=== PATIENT | female | born 1965 | race Caucasian/White ===

== ENCOUNTER 2018-03-22 22:05 | Emergency (ER) | payer SELFPAY ==
[~2018-03-22] VITALS: Ht 157.5 cm; Wt 81.3 kg
[~2018-03-22 22:05] MED LIST: ALBU0.086 INH; ALBU8I INH; LORA-392 PO; LORTA10 PO; MEDR4PAK3 PO; ZITH250T PO
[2018-03-22 22:10] VITALS: BP 160/92; PULSE 101; RESP 18; TEMP 98.4; O2SAT 96
[2018-03-22] MEDS ORDERED: CYCL10TA PO (22:48)
[2018-03-22] MEDS ORDERED: CLON1 PO (22:48)
--- NOTE | 2018-03-22 22:57 | RADRPT ---
EXAM DATE: 03/22/2018 10:54 PM EDT AGE/SEX: 52 years / Female INDICATIONS: Patient complains of right ankle pain status post falling up stairs. CLINICAL DATA: This is the patient's initial encounter. Patient reports that signs and symptoms have been present for 1 day and indicates a pain score of 10/10. MEDICAL/SURGICAL HISTORY: None. None. COMPARISON: No prior [facility] exams available for comparison. FINDINGS: Bony structures are intact and in normal alignment. Joints are intact without dislocation or signifi cant arthropathy. Osseous density is normal. Soft tissues are unremarkable. No radiopaque foreign bodies seen. Plantar and posterior calcaneal spur formation. CONCLUSION: No evidence of recent bony injury. Electronically signed by: Jef Wilson MD 03/22/2018 10:56 PM EDT
--- NOTE | 2018-03-22 23:03 | RADRPT ---
EXAM DATE: 03/22/2018 10:58 PM EDT AGE/SEX: 52 years / Female INDICATIONS: Patient complains of right foot pain status post fall up stairs. CLINICAL DATA: This is the patient's initial encounter. Patient reports that signs and symptoms have been present for 1 day and indicates a pain score of 10/10. MEDICAL/SURGICAL HISTORY: None. None. COMPARISON: [facility], ANKLE RIGHT COMPLETE ([id number]), 03/22/2018. . FINDINGS: The oblique views suggest a nondisplaced fracture involving the body of the calcaneus. The rest of th e bony structures are grossly intact. No joint dislocation is demonstrated. There is a small heel spu r on the plantar surface of calcaneus. There is soft tissue swelling. CONCLUSION: Findings suggestive of a nondisplaced fracture involving the body of the calcaneus. Recommend noncont rast CT scan of the calcaneus for further evaluation Electronically signed by: Germain Zhou MD 03/22/2018 11:02 PM EDT
[2018-03-22] MEDS ORDERED: ACETAMINOPHEN/HYDROcodone 325 MG/5 MG TAB PO ONE (23:15)
--- NOTE | 2018-03-22 23:19 | PD ---
HPI Chief Complaint: Injury Time Seen by Provider: 22:29 Travel History International Travel<30 days: No Contact w/Intl Traveler<30days: No Traveled to known affect area: No History of Present Illness HPI Patient is a 52 year old female who comes in complaining of pain to her right foot after she fell "through her stairs." She says she was walking up the steps when they gave way and she twisted her ankle. She says she hit her right hip and knee, but these are not bothering her. She denies hitting her head or any LOC. She took an Advil and Tylenol without relief of her symptoms. Walking makes the pain worse. This occurred just prior to arrival. Severity is mild to moderate. PFSH Past Medical History Anxiety: Yes COPD: Yes (PT STATES SHE HAS EMPHYSEMA) Diminished Hearing: No Hypertension: Yes Musculoskeletal: Yes (CHRONIC LEFT KNEE) Immunizations Current: Yes Tetanus Vaccination: > 5 Years Influenza Vaccination: No ?: Not LMP: 03/01/18 : 4 Para: 2 : 2 Past Surgical History Section: Yes (1995, 2001) Tonsillectomy: Yes Social History Alcohol Use: Yes (OC) Tobacco Use: Yes (1.5 PPD,STATES QUIT 8 DAYS AGO DUE TO ANXIETY) Substance Use: No Allergies-Medications (Allergen,Severity, Reaction): Coded Allergies: No Known Allergies (Verified , 08/08/14) Reported Meds & Prescriptions Reported Meds & Active Scripts Active Reported Flexeril (Cyclobenzaprine HCl) 10 Mg Tab 10 Mg PO TID Klonopin (Clonazepam) 1 Mg Tab 1 Mg PO DAILY Review of Systems General / Constitutional: No: Fever, Chills HENT: No: Headaches, Lightheadedness Cardiovascular: No: Chest Pain or Discomfort Respiratory: No: Shortness of Breath Gastrointestinal: No: Nausea, Vomiting Musculoskeletal: Positive: Edema, Pain Skin: No Rash, No Change in Pigmentation Neurologic: No: Weakness, Dizziness, Sensory Disturbance Physical Exam Narrative GENERAL: Awake and alert, in no acute distress. SKIN: Focused skin assessment warm/dry. No wounds. HEAD: Atraumatic. Normocephalic. EYES: Pupils equal and round. No scleral icterus. ENT: Mucous membranes pink and moist. CARDIOVASCULAR: Regular rate and rhythm. No murmur appreciated. RESPIRATORY: No accessory muscle use. Clear to auscultation. Breath sounds equal bilaterally. MUSCULOSKELETAL: No obvious deformities. No clubbing. No cyanosis. No edema. No tenderness to palpation of the hip. Pain with palpation to the base of the right foot. Pedal pulse and sensation intact. NEUROLOGICAL: Awake and alert. No obvious cranial nerve deficits. Motor grossly within normal limits. Normal speech. PSYCHIATRIC: Appropriate mood and affect; insight and judgment normal. Data Data Last Documented VS Vital Signs Date Time Temp Pulse Resp B/P (MAP) Pulse Ox O2 Delivery O2 Flow Rate FiO2 03/22/18 22:32 18 97 Room Air 03/22/18 22:10 98.4 101 160/92 (114) Orders Orders Foot, Complete ([id number]) (03/22/18 ) Ankle, Complete ([id number]) (03/22/18 ) Ct Foot W/O Contrast (03/22/18 ) Acetamin-Hydrocod 325-5 Mg ([place] 5-325 (03/22/18 23:15) MDM Medical Decision Making Medical Screen Exam Complete: Yes Emergency Medical Condition: Yes Medical Record Reviewed: Yes Differential Diagnosis foot fracture vs ankle fracture vs sprain Narrative Course Patient is a 52-year-old female comes in complaining of pain to her right foot after falling through her stairs. Exam shows tenderness to palpation of the foot. X-ray obtained shows possible calcaneal fracture. CT of the foot obtained shows a comminuted, nondisplaced fracture. Last 24 hours Impressions [address] Extrem[address] 03/22/18 Signed Impressions: CONCLUSION: 1. Comminuted nondisplaced fractures through the body of the calcaneus. Foot X-Ray 03/22/18 Signed Impressions: CONCLUSION: Findings suggestive of a nondisplaced fracture involving the body of the calcan eus. Recommend noncontrast CT scan of the calcaneus for further evaluation Ankle X-Ray 03/22/18 Signed Impressions: CONCLUSION: No evidence of recent bony injury. Patient given pain medicine. Call placed to podiatry for consult. Patient informed of the results, states she just wants to go home. She does not want to wait for podiatry at this time. Advised that she may need surgery to have this fixed. Foot splinted and she was given crutches. Given a prescription for pain medicine. Referral placed to podiatry. She is encouraged to follow-up as soon as possible as this may need to be fixed surgically. I did advise her to stay until I was able to speak with the [facility] programmer, however she refuses at this time. Diagnosis Primary Impression: Right calcaneal fracture Qualified Codes: S92.014A - Nondisplaced fracture of body of right calcaneus, initial encounter for closed fracture Patient Instructions: Calcaneal Fracture (ED), General Instructions Additional Instructions: Follow-up with podiatry as soon as possible. Take pain medicine as needed. Do not get your splint wet and use the crutches to avoid putting weight on your foot. Return to the ED as needed for any worsening symptoms. Scripts Hydrocodone-Acetaminophen ([place]) 5 Mg-325 Mg Tab 1 TAB PO Q6H Y for PAIN, #10 TAB 0 Refills Prov: Judith Turk MD 03/23/18 Disposition: 01 DISCHARGE HOME Condition: Stable Judith Turk MD Mar 22, 2018 23:19
--- NOTE | 2018-03-22 23:58 | RADRPT ---
EXAM DATE: 03/22/2018 11:54 PM EDT AGE/SEX: 52 years / Female INDICATIONS: Right foot pain post fall through steps. CLINICAL DATA: This is the patient's initial encounter. Patient reports that signs and symptoms have been present for 1 day and indicates a pain score of 10/10. MEDICAL/SURGICAL HISTORY: None. None. RADIATION DOSE: 6.03 CTDI (mGy) COMPARISON: No prior [facility] exams available for comparison. TECHNIQUE: Multiple contiguous axial images were acquired using a multirow detector CT scanner witho ut contrast. Multiplanar reconstruction was performed in the sagittal and coronal planes. Using auto mated exposure control and adjustment of the mA and/or kV according to patient size, radiation dose w as kept as low as reasonably achievable to obtain optimal diagnostic quality images. FINDINGS: Bones: There is an oblique comminuted nondisplaced fractures through the body of the calcaneus. The rest of the bony structures are grossly intact. Joints: Good alignment at the joints. No joint dislocation. Soft Tissues: Soft tissue swelling around the calcaneus. Other: No foreign bodies seen. CONCLUSION: 1. Comminuted nondisplaced fractures through the body of the calcaneus. Electronically signed by: Germain Zhou MD 03/22/2018 11:57 PM EDT
[2018-03-23] MEDS ORDERED: NORC5TAB PO (00:28)
[2018-03-23 00:45] VITALS: RESP 18
[2018-03-23 00:57] VITALS: BP 163/83
== END 2018-03-23 01:00 | disposition home or self-care (01) ==
LOC: PHEFT 22:05
DX: S92.014A Nondisplaced fracture of body of right calcaneus, initial encounter for closed fracture (principal); F41.9 Anxiety disorder, unspecified; J44.9 Chronic obstructive pulmonary disease, unspecified; I10 Essential (primary) hypertension; Z79.899 Other long term (current) drug therapy; Z87.891 Personal history of nicotine dependence; W10.9XXA Fall (on) (from) unspecified stairs and steps, initial encounter
CPT/HCPCS: 29515; 73610; 73630; 73700